=== PATIENT | female | born 1955 | race Caucasian/White ===

== ENCOUNTER 2017-09-29 09:29 | Day surgery (SDC) | payer MEDICARE, MEDICAID ==
--- NOTE | 2017-09-29 06:56 | History and Physical Report ---
DATE: 09/28/2017. CHIEF COMPLAINT AND HISTORY OF CHIEF COMPLAINT: This patient presents with a history of an intractable lumbar radiculitis. Due to the failure of all therapy , the patient presents today for a trial of intraspinal opioids using an implanted spinal catheter technique and hydromorphone. PAST MEDICAL HISTORY: Gastrointestinal disease, Crohn's disease, reflux esophagitis. PAST SURGICAL HISTORY: Hysterectomy. SOCIAL HISTORY: Caffeine, smoking. FAMILY HISTORY: Coronary artery disease, hypertension. MEDICATIONS ON ADMISSION: To be provided. ALLERGIES: None. REVIEW OF SYSTEMS: The patient seems appropriate and in no acute distress. The remainder of the systems review shows depression and difficulty sleeping. PHYSICAL EXAMINATION: General: Height and weight are not available. Vital Signs: Not available. HEENT: Within normal limits. Lungs: Clear. Heart: Regular rate and rhythm. Abdomen: Nontender. Musculoskeletal: Examination of the musculoskeletal system shows diffuse tenderness throughout the lumbar spine. The incisional site for a spinal cord implant which was placed 02/07/2015 is identified along with the generator pouch. Pain appears to be extending into the lower extremities, somewhat more right than left. Sensory field evaluation shows deficits across what could be an L4 and L5 pattern to the front and back surface of the legs. Motor functionality shows bilateral, somewhat more right greater than left, weakness across an L4-L5 pattern. Ambulation: No assistive device utilized. Neurologic: Cranial nerves are intact. IMPRESSION: LUMBAR RADICULITIS, ICD-10 CODE M54.16 AND M54.17. PLAN: The patient is here for an implanted spinal catheter infusion trial with hydromorphone to determine if the implantation of a permanent system can be of any value in pain control. The potential risks, side effects, and complications have all been carefully reviewed and discussed including spinal cord injury, nerve root injury, paralysis, and spinal headache. The patient understands and has agreed to proceed. The patient was instructed not only through the clinic and myself but was also given information provided by the technical data analyst explaining the risks, side effects, and complications. A direct interview with the [employer] sales representative marine supplies was conducted also to make sure the patient understood completely the risks, the procedure, and its content. All of the patient's questions have been answered. We will consider a possible overnight stay with discharge on an outpatient basis to be evaluated. The patient understands the incision and implantation of a spinal catheter and the dural puncture, the potential risks of spinal headache, the epidural blood patch , in combination with the implanted catheter ideally to reduce the risk of complications. JOB NUMBER: [id number] cc: Jessie Maldonado
[~2017-09-29 09:29] MED LIST: ACETAMINOPHEN 1,000 MG/100 ML BTL IV ONE; CEFAZOLIN 2 Gram 2 GM/50 ML BAG IVPB ONE; FAMOTIDINE 20MG TABLET PO ONE; MECLIZINE 25 MG TABLET PO ONE; METOCLOPRAMIDE 10 MG TABLET PO ONE
[2017-09-29] MEDS ORDERED: CEFAZOLIN 1G VIAL IM ONE (09:30)
[2017-09-29] MEDS ORDERED: BUPIVACAINE 0.5% W/EPI MPF 30 ML VIAL IVP ONE (09:30)
[2017-09-29] MEDS ORDERED: PROPOFOL 10 MG/ML VIAL IV ONE (09:30)
[2017-09-29] MEDS ORDERED: MIDAZOLAM HCL 2MG/2ML VIAL IV ONE (09:30)
[2017-09-29] MEDS ORDERED: LIDOCAINE 1% W/EPI 1:200,000 MPF 30ML SQ ONE (09:30)
[2017-09-29] MEDS ORDERED: FENTANYL PF 100MCG/2ML VIAL IV ONE (09:30)
[2017-09-29] MEDS ORDERED: HYDROMORPHONE HCL 2 MG/ML VIAL IV ONE (09:30)
[2017-09-29] MEDS ORDERED: LIDOCAINE 2% MDV (20MG/ML) 20ML VIAL IV ONE (09:30)
[2017-09-29] MEDS ORDERED: HYDROMORPHONE PF 2MG/ML AMP 0.008 MG in 0.9 % SODIUM CHLORIDE 10ML VIA 0.996 ML IV ONE ×4 (10:00)
[2017-09-29] MEDS ORDERED: HYDROMORPHONE PF 2MG/ML AMP 4 MG in 0.9 % SODIUM CHLORIDE 500ML 498 ML IV ONE (10:00)
[2017-09-29] MEDS ORDERED: METOCLOPRAMIDE HCL 10 MG/2 ML VIAL IVP PRN (13:09)
[2017-09-29] MEDS ORDERED: HYDROMORPHONE HCL 2 MG/ML VIAL IM PRN (13:09)
[2017-09-29] MEDS ORDERED: DIPHENHYDRAMINE HCL IV 50 MG/ML VIAL IVP PRN ×2 (13:09)
[2017-09-29] MEDS ORDERED: SENNOSIDES/DOCUSATE SODIUM UD CAPSULE PO PRN ×2 (13:09)
[2017-09-29] MEDS ORDERED: METOCLOPRAMIDE 10 MG TABLET PO PRN (13:09)
[2017-09-29] MEDS ORDERED: AL HYDROX/MAG HYDROX 30ML UD PO PRN (13:09)
[2017-09-29] MEDS ORDERED: OXYCODONE/APAP 10MG-325MG TABLET PO PRN ×2 (13:09)
[2017-09-29] MEDS ORDERED: DIPHENHYDRAMINE HCL 25 MG CAPSULE PO PRN ×2 (13:09)
[2017-09-29] MEDS ORDERED: HYDROCODONE/APAP 7.5/325MG TABLET PO PRN ×2 (13:09)
[2017-09-29] MEDS ORDERED: HYDROMORPHONE HCL 1 MG/ML SYRINGE IM PRN (13:09)
[2017-09-29] MEDS ORDERED: NALOXONE 0.4 MG/1 ML VIAL IVP PRN (13:09)
[2017-09-29] MEDS ORDERED: TEMAZEPAM 15 MG CAPSULE PO PRN ×2 (13:09)
[2017-09-29] MEDS ORDERED: ACETAMINOPHEN 325 MG TAB PO PRN ×2 (13:09)
[2017-09-29] MEDS: RINGERS SOLUTION,LACTATED 1,000 ML IV SCH ×2 (13:57→15:27)
[2017-09-29] MEDS ORDERED: LORAZEPAM 0.5 MG TABLET PO SCH (16:00)
--- NOTE | 2017-09-29 16:18 | Operative Note - Ferro ---
DATE OF SURGERY: 09/29/17 PREOPERATIVE DIAGNOSIS: INTRACTABLE LUMBAR RADICULITIS, ICD-10 CODE = M54.16 AND M54.17. OPERATION: 1. FLUOROSCOPICALLY-GUIDED SPINAL ACCESS AT L3/4, PLACEMENT OF THIN-WALLED SPINAL CATHETER ADVANCED TO T12. 2. DIAGNOSTIC MYELOGRAPHY WITH RADIOLOGIC SUPERVISION AND INTERPRETATION. 3. BOLUS HYDROMORPHONE SPINAL SPACE AT 0.002 MG. 4. INCISION, SUBCUTANEOUS DISSECTION, AND ANCHORING OF SPINAL CATHETER TO SUPRASPINOUS FASCIA WITH ANCHORING DEVICE AND NONABSORBABLE SUTURE. 5. INCISION, SUBCUTANEOUS DISSECTION, AND CREATION OF SUBCUTANEOUS POUCH, RIGHT POSTERIOR GLUTEAL MARGIN. 6. TUNNELING BETWEEN MIDLINE SPINAL CATHETER POUCH AND RIGHT POSTERIOR POUCH TUNNELING SPINAL CATHETER INTO POUCH, INTERFACE SPINAL CATHETER WITH SECOND CATHETER COMPONENT BY WAY OF CONNECTOR TUNNELING SECOND CATHETER COMPONENT 6 CM ABOVE POUCH EXITING SKIN. 7. INTERFACE EXTERNAL CATHETER WITH EXTERNAL PUMP SET TO DELIVER HYDROMORPHONE AT 0.04 MG A DAY. 8. CLOSURE OF MIDLINE INCISION VICRYL FOR FASCIA, SUBCUTICULAR VICRYL FOR SKIN. DERMABOND CLOSURE. CLOSURE OF RIGHT POSTERIOR GLUTEAL MARGIN POUCH NYLON SUTURE. 9. EPIDURAL BLOOD PATCH 20 ML AUTOLOGOUS BLOOD STERILE TECHNIQUE L5/S1 WITHOUT INCIDENT. SURGEON: MATT MYRICK D.O. ANESTHESIA: LOCAL SEDATION. ANESTHESIA PROVIDER: KIERSTEN SEARS CRNA INDICATION: This patient presents with a history of intractable lumbar radiculitis. Due to the failure of therapy, she is here for a spinal infusion trial with Hydromorphone using an implanted catheter technique to determine if a spinal infusion device would be of any value in pain control. PROCEDURE: Intravenous line, vital sign monitoring, IV sedation, prepped and draped in sterile technique, patient position prone. Under imaging, the spinal space at L3/4 was identified and marked. Skin infiltrated, using a 20-gauge spinal needle beveled with a long axis and on AP and then lateral imaging, the needle was attempted at 3/4. This was unsuccessful because of significant spurs. At L4/5, a 20-gauge spinal was inserted. With CSF flow, a thin-walled spinal catheter was advanced without incident. There was a mild fasciculation across the back but no pain on the part of the patient. The catheter was slowly advanced without difficulty midbody T12. CSF had been noted through the needle initially. The skin above and below the needle infiltrated, incision made, and subcutaneous dissection was conducted to the supraspinous fascia. The needle was removed and the catheter was anchored to the supraspinous fascia with an anchor and nonabsorbable suture. Once the stylette was removed from the catheter , CSF flow was identified easily flowing through the catheter itself. CSF flow had been confirmed through the catheter once the stylette had been removed. Diagnostic myelography was then performed. Contrast flow through the catheter approximately 1 mL was smooth and easy. There was no pain or response on the part of the patient. Under appropriate radiologic supervision and interpretation , appropriate flow characteristics for the myelogram noted with lateralized flow characteristics away from the catheter tip at the lower margin at T12. With appropriate flow characteristics identified and no abnormal event on the part of the patient, a bolus of Hydromorphone at 0.004 mg was given into the spinal space. The catheter had been anchored to the supraspinous fascia with nonabsorbable suture once the incision was made. A [id number] suture over the catheter penetration point was made to reinforce the area to prevent any ratcheting of the catheter out of the space. Antibiotic irrigation and Bovie for hemostasis. The patient ultimately picked the right posterior gluteal margin for the pump reservoir should the trial succeed. A small incision below the belt line was made after local was infiltrated. Subcutaneous dissection was conducted to form a small pouch at the right posterior gluteal margin. A tunneling tool was then used to carry the spinal catheter into the posterior pouch exiting the pouch. This indwelling spinal catheter was then interfaced with a second catheter component by way of a connector. The second catheter component was tunneled superior from this pouch exiting the skin. The externalized catheter was then interfaced with an external pump set to deliver Hydromorphone at 0.04 mg a day. The midline incision was closed Vicryl for fascia, running subcuticular Vicryl for skin. The posterior gluteal pouch was closed with nylon suture. An epidural blood patch was then performed. 20 mL of autologous blood was drawn sterile technique from the left antecubital maintaining sterility and placed onto the field. An 18-gauge Tuohy needle with [id number] was used to gain in the epidural space at L5/S1 without difficulty and then 20 mL of autologous blood was injected as an epidural blood patch at this level without difficulty and no response on the part of the patient. Needle removed. The area was cleaned. The dressing was reinforced and placed to secure the catheter and all connections under sterile dressing. She was then transported to the Recovery Room flat, pillow under head and knees, stable showing no side-effects from the procedure or the sedation. There was no lower extremity symptoms or abnormal findings noted. She was conversational and indicating no appreciable amount of pain. She was monitored until stable and then transported to the Floor, flat four hours, slowly elevated for one. Her requested was to be discharged home. We will evaluate discharge ability. DISCHARGE INSTRUCTIONS: 1. Sites will remain clean and dry. No showering or bathing in any way that would disrupt dressings. If it happens, contact the clinic. 2. Standard medication resumed including the antibiotic, Levaquin, 500 mg once a day for 14 days. 3. Spinal opioid side-effects; respiratory depression, nausea, vomiting, constipation, urinary retention, lightheadedness or rash have all been discussed and reviewed. Should this happened, she should contact the clinic, go to a local Emergency Room. Levaquin, the antibiotic, has been called to the pharmacy. If she has any problems with the antibiotic, she should contact the clinic for substitution. She should not be without the antibiotic. All other instructions provided, numbers to given, problems. The office will contact the patient in 24-48 hours to set up her first increase by the end of the week. All other instructions provided. cc: Dr. Malik JOB NUMBER: [id number] MTDD
[2017-09-29] MEDS ORDERED: GABAPENTIN 300 MG CAPSULE PO SCH (17:30)
[2017-09-29] MEDS ORDERED: CEFAZOLIN 2 Gram 2 GM/50 ML BAG IVPB SCH (19:00)
[2017-09-29] MEDS ORDERED: BUSPIRONE 5 MG TABLET PO SCH (22:00)
[2017-09-29] MEDS ORDERED: TRAZODONE 50 MG TABLET PO SCH (22:00)
[2017-09-29] MEDS ORDERED: ATORVASTATIN 20 MG TABLET PO SCH (22:00)
[2017-09-30] MEDS ORDERED: PANTOPRAZOLE SODIUM 40 MG TABLET PO SCH (07:00)
[2017-09-30] MEDS ORDERED: PAROXETINE HCL 10 MG TABLET PO SCH (10:00)
--- NOTE | 2017-09-30 10:09 | RADIOLOGY REPORT ---
EXAM: LUMBAR SPINE, SINGLE VIEW HISTORY: POST PAIN PUMP TRIAL. TECHNIQUE: A single AP view of the lumbar spine was obtained. Comparison: AP spine 02/06/15. FINDINGS: A battery pack is again seen overlying the left lower quadrant. Associated catheters appear to extend up at least to the level of the upper body of T10, which is the superior extent of the image. There is now a tiny metallic dot like density at the level of the thoracolumbar interspace which was not seen previously and may represent the cranial extent of an additional fine catheter and clinical correlation is suggested with the procedure. No additional battery pack identified. Degenerative arthritis in both hips, right greater than left. Linear wire or needle like density approximately 2.1 cm in length projecting over the soft tissues just lateral to the right iliac wing may be external to the patient, but clinical correlation is suggested. IMPRESSION: 1. NEW TINY METALLIC DOT LIKE DENSITY AT THE LEVEL OF THE THORACOLUMBAR INTERSPACE MAY REPRESENT THE CRANIAL EXTENT OF A SMALL CALIBER SPINAL CATHETER AND CLINICAL CORRELATION IS SUGGESTED. 2. BATTERY PACK WITH CATHETER/ELECTRODES EXTENDING UP TO AT LEAST THE T10 LEVEL DESCRIBED ABOVE. 3. WIRE OR NEEDLE LIKE DENSITY OVERLYING THE SOFT TISSUES OF THE RIGHT SIDE OF THE PELVIS JUST LATERAL TO THE ILIAC WING DESCRIBED ABOVE. 4. DEGENERATIVE ARTHRITIS IN THE HIPS, RIGHT GREATER THAN LEFT. JOB NUMBER: [id number] MTDD
== END 2017-09-29 18:00 | disposition home or self-care (01) ==
LOC: SUR 09:29 → MEDSURG 13:01 → SUR 18:00
PROVIDERS: ATTEND Pain Medicine Interventional Pain Medicine
DX: M54.16 Radiculopathy, lumbar region (principal); M54.17 Radiculopathy, lumbosacral region; F41.8 Other specified anxiety disorders; E78.00 Pure hypercholesterolemia, unspecified; K50.90 Crohn's disease, unspecified, without complications
CPT/HCPCS: 72020; J0690; J1170; J7040; J7120

== ENCOUNTER 2017-10-13 10:24 | Day surgery (SDC) | payer MEDICARE, MEDICAID ==
--- NOTE | 2017-10-13 07:21 | History and Physical - Ferro ---
CHIEF COMPLAINT/HISTORY OF CHIEF COMPLAINT: This patient with an ongoing implanted spinal catheter infusion trial using Hydromorphone has achieved 75-85 % pain control. Due to the failure of all of the other therapies, she is here for permanent implant of the device. PAST MEDICAL HISTORY: Gastrointestinal disease, Crohn's disease, and reflux esophagitis. PAST SURGICAL HISTORY: Hysterectomy. MEDICATIONS ON ADMISSION: List to be provided. ALLERGIES: None. FAMILY/PSYCHOSOCIAL HISTORY: Social history - Positive for caffeine and smoking. Family history - Coronary artery disease and hypertension. SYSTEMS REVIEW: The patient is appropriate in no acute distress. The remainder of the systems review is positive for depression and difficulty sleeping. PHYSICAL EXAMINATION: Height is not known. Vital signs - Blood pressure 135/66 , pulse 71, respirations 16, O2 saturation 96% on room air. HEENT: Within normal limits. LUNGS: Clear. HEART: Rapid and regular. ABDOMEN: Nontender. MUSCULOSKELETAL: Examination of the musculoskeletal system shows the primary pain pattern to be bilateral lower extremity. The dressings holding the implanted catheter in place and intact are still in place. Externalized pump functioning and in place. Primary pain pattern bilateral lower extremity radicular components. Motor and sensory field evaluation shows mild deficits across the sensory nair of L4 and L5 bilateral. Motor functionality shows somewhat reduced strength right greater than left across an L4- and L5 pattern. Reflexes look difficult to elicit. Ambulation - No assistive device utilized. NEUROLOGIC: Cranial nerves are intact. IMPRESSION: 1. LUMBAR RADICULOPATHY, ICD-10 CODE M54.16 AND M54.17. 2. IMPLANTED SPINAL CATHETER INFUSION TRIAL USING HYDROMORPHONE. PLAN: With the success of the trial the patient is here for implantation of a permanent system. The potential risks, side effects, and complications all have been reviewed and discussed. We will consider this perhaps an outpatient procedure although an overnight stay will be evaluated. JOB NUMBER: [id number] [facility]
[~2017-10-13 10:24] MED LIST changes: +HYDROMORPHONE HCL 0.032 GM in 0.9 % SODIUM CHLORIDE 10ML VIA 40 ML IV ONE; +HYDROMORPHONE PF 2MG/ML AMP 0.004 MG in 0.9 % SODIUM CHLORIDE 10ML VIA 0.998 ML IV ONE
[2017-10-13] MEDS ORDERED: LIDOCAINE 1% W/EPI 1:200,000 MPF 30ML SQ ONE (10:25)
[2017-10-13] MEDS ORDERED: BUPIVACAINE 0.5% W/EPI MPF 30 ML VIAL IVP ONE (10:25)
[2017-10-13] MEDS ORDERED: MIDAZOLAM HCL 2MG/2ML VIAL IV ONE (10:25)
[2017-10-13] MEDS ORDERED: PROPOFOL 10 MG/ML VIAL IV ONE (10:25)
[2017-10-13] MEDS ORDERED: HYDROMORPHONE HCL 2 MG/ML VIAL IV ONE (10:25)
[2017-10-13] MEDS ORDERED: CEFAZOLIN 1G VIAL IM ONE (10:25)
[2017-10-13] MEDS ORDERED: *PACU ONLY* KETAMINE HCL 10 MG/ML (20ML) VIAL IV ONE (10:25)
--- NOTE | 2017-10-13 17:03 | Operative Note - Ferro ---
DATE OF SURGERY: 10/13/17 PREOPERATIVE DIAGNOSES: 1. INTRACTABLE LUMBAR RADICULOPATHY, ICD-10 CODE = M54.16 AND M54.17. 2. IMPLANTED SPINAL CATHETER INFUSION TRIAL HYDROMORPHONE. OPERATION: 1. INCISION, SUBCUTANEOUS DISSECTION, AND REMOVAL OF EXTERNALIZED CATHETER. 2. INCISION, SUBCUTANEOUS DISSECTION, AND FORMATION OF SUBCUTANEOUS POUCH FOR PROGRAMMABLE PUMP RIGHT POSTERIOR GLUTEAL MARGIN IDENTIFIED A MEDTRONIC 40 ML PROGRAMMABLE. 3. RESECTION AND INTERFACE INDWELLING SPINAL CATHETER WITH SECOND CATHETER COMPONENT BY WAY OF CONNECTOR. 4. INTERFACE REVISED CATHETER TO PUMP PLACED ONTO THE FIELD, PRE-FILLED HYDROMORPHONE 1 MG PER ML. 5. PLACEMENT OF PUMP INTO FORMED POUCH SECURING TO FASCIA WITH NONABSORBABLE SUTURE, THREE POINTS PUMP EYELETS. 6. PLACEMENT OF CURVED 24-GAUGE BANGURA NEEDLE WITH ACCESS PORT PROGRAMMABLE PUMP , ASPIRATION CLEARING CATHETER OF OPIOID AND CSF MIXTURE. 7. DIAGNOSTIC MYELOGRAPHY WITH RADIOLOGIC SUPERVISION AND INTERPRETATION. 8. PROGRAMMING OF PUMP TO DELIVER HYDROMORPHONE CONTINUOUS INFUSION AT 0.10 MG A DAY. 9. CLOSURE OF INCISIONS, VICRYL FOR FASCIA, RUNNING SUBCUTICULAR VICRYL FOR SKIN. DERMABOND CLOSURE. SURGEON: MATT MYRICK D.O. ANESTHESIA: LOCAL SEDATION. ANESTHESIA PROVIDER: LILLIANA FRAGOSO CRNA. INDICATION: This patient presents with a history of intractable lumbar radiculitis with an ongoing implanted spinal catheter infusion trial Hydromorphone. With success of the trial and failure of other therapies, she is here for full implantation of a permanent system. PROCEDURE: Intravenous line, vital sign monitoring, IV sedation, prepped and draped with sterile technique. Patient position prone. Sterile prep. Sterile technique. The dressings holding the implanted catheter trial were removed. At the right posterior gluteal margin pump pouch site, skin infiltrated, incision made, and subcutaneous dissection was conducted to the interface between the external catheter and the indwelling catheter. The catheter was clamped and the externalized catheter was cut and resected and then removed moving and pulling away from the incision out the skin. Subcutaneous dissection was conducted at the right posterior gluteal margin to form a pouch of suitable size and depth for the pump identified as a Medtronic 40 mL Programmable. The indwelling catheter, which had been resected was then revised, resected, and interfaced with a second catheter component by way of a connector. This revised catheter component was then interfaced to a pump 40 mL Programmable Deskidea, placed onto the field filled with Hydromorphone at 1 mg per mL concentration. With the interface connection made, the pump was placed into the pouch and secured to the fascia with nonabsorbable suture through the pump eyelets, three points. Antibiotic irrigation and Bovie for hemostasis. A curved 24-gauge [place] needle was inserted into the access port and 1 mL of catheter content was aspirated clearing the catheter of opioid and CSF mixture. Diagnostic myelography was then performed through the access port. Contrast flow characteristics with the internal pump were appropriate. There were no leaks or kinks. Catheter pump connection was identified. No kinks or leaks. Tip of the catheter at T1/L1 was identified with appropriate myelogram flow characteristics identified confirming functionality of the system. At that point, with the pump in the pouch, the incision was closed Vicryl for fascia, running subcuticular Vicryl for skin, and a Dermabond closure. The pump was programmed to deliver continuous infusion of Hydromorphone at 0.1 mg a day. She was transported to the Recovery Room stable showing no side-effects from the procedure or the sedation. She showed no side-effects related to the procedure. DISCHARGE INSTRUCTIONS: 1. Sites remain clean and dry. No showering or bathing in any way that would disrupt dressings. If it happens, contact the clinic. 2. Standard medications resumed including Levaquin, the antibiotic, 500 mg once a day for another 7-10 days. 3. Spinal opioid side-effects; respiratory depression, nausea, vomiting, constipation, urinary retention, lightheadedness or rash have all been discussed and reviewed. All other instructions provided, numbers to contact, problems given. She will be contacted in the next 42 hours by the office setting an appointment in 5-7 days to evaluate the sites. Until then, her activities should stay low limiting bend, lift, push, pull. Complete the antibiotic as directed. All other instructions provided, numbers to contact, problems given. All the potential side-effects have been reviewed. cc: Dr. Malik JOB NUMBER: [id number] MTDD
== END 2017-10-13 14:48 | disposition home or self-care (01) ==
LOC: SUR 10:24
PROVIDERS: ATTEND Pain Medicine Interventional Pain Medicine
DX: M54.16 Radiculopathy, lumbar region (principal); M54.17 Radiculopathy, lumbosacral region; E78.00 Pure hypercholesterolemia, unspecified; K50.90 Crohn's disease, unspecified, without complications; F41.8 Other specified anxiety disorders
CPT/HCPCS: 62362; 00630; 00300; 62367; Q9967; J1170 ×2; J0690; C1755

== ENCOUNTER 2017-10-22 09:15 | Emergency (ER) | payer MEDICARE, MEDICAID ==
--- NOTE | 2017-10-22 09:30 | Emergency Department Record ---
History of Present Illness - General Chief complaint: Lower Extremity Pain Stated complaint: LEFT LEG PAIN Time Seen by Provider: 10/22/17 09:16 Source: Patient Mode of Arrival: Ambulatory Limitations: No limitations - History of Present Illness Initial comments: 62 yo female presents with one week of left distal leg pain and swelling. No injury. No fever. No abnormal redness, wamth or coolness. No cough, chest pain or shortness of breath. She did have a spinal catheter pump placement on . She states this initially went well without any complications. She has suffered form chronic sciatica mostly on the right but occasionally on the left as well. No weakness or numbness. 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 MD Complaint: Extremity pain, Extremity swelling -: Week(s) (1) Location: Left, Ankle, Lower Leg History of Same: Yes -: Yes Arthralgia Radiation: Distal Quality: Aching Consistency: Constant Improves with: Nothing Worsens with: Weight bearing Associated Symptoms: Denies other symptoms - Related Data Home Medications Medication Instructions Recorded Confirmed Last Taken Atorvastatin Calcium [Lipitor] 20 mg PO DAILY 10/22/17 10/22/17 10/22/17 Buspirone HCl [Buspar] 7.5 mg PO BID 10/22/17 10/22/17 10/22/17 Dicyclomine HCl [Dicyclomine HCl] 20 mg PO ASDIR 10/22/17 10/22/17 Unknown Gabapentin [Neurontin] 600 mg PO TID 10/22/17 10/22/17 10/22/17 Hydrocodone/Acetaminophen [[place] 1 each PO Q6H 10/22/17 10/22/17 Unknown 7.5-325 Tablet] Mesalamine [Asacol Hd] 800 mg PO DAILY 10/22/17 10/22/17 Unknown Ondansetron [Zofran Odt] 4 mg PO ASDIR 10/22/17 10/22/17 Unknown Paroxetine HCl [Paxil] 40 mg PO DAILY 10/22/17 10/22/17 10/22/17 Ropinirole HCl [Requip] 1 mg PO QHS 10/22/17 10/22/17 Unknown Trazodone HCl 100 mg PO QHS 10/22/17 10/22/17 Unknown Previous Rx's Medication Instructions Recorded Clindamycin HCl 300 mg PO QID #28 capsule 10/22/17 Hydrocodone/Acetaminophen [[place] 1 each PO Q6H #12 tablet 10/22/17 7.5-325 Tablet] Allergies Allergy/AdvReac Type Severity Reaction Status Date / Time morphine Allergy SWELLING Verified 10/22/17 09:29 OF THE TONGUE Review of Systems Constitutional: Denies: Chills, Fever Eyes: Denies: Vision change ENT: Denies: Congestion, Throat pain Respiratory: Denies: Cough, Dyspnea, Hemoptysis, Stridor, Wheezes Cardiovascular: Denies: Chest pain, Palpitations, Syncope Endocrine: Denies: Fatigue Gastrointestinal: Denies: Abdominal pain, Diarrhea, Nausea, Vomiting Genitourinary: Denies: Dysuria Musculoskeletal: Reports: As per HPI, Arthralgia, Back pain, Joint swelling Skin: Denies: Bruising, Change in color, Rash Neurological: Denies: Headache, Numbness, Vertigo, Weakness Psychiatric: Denies: Anxiety Hematological/Lymphatic: Denies: Blood Clots, Easy bleeding, Easy bruising, Swollen glands Past Medical History - SOCIAL HISTORY Smoking Status: Current every day smoker - RESPIRATORY Hx Respiratory Disorders: Yes Hx Bronchitis: Yes - CARDIOVASCULAR Hx Cardio Disorders: Yes Comment:: due to back pain - NEURO Hx Neuro Disorders: Yes Hx Neuropathy: Yes - GI Hx GI Disorders: Yes Hx Crohn's Disease: Yes (dx'd 1991 controlled) Hx Reflux: Yes (on meds good control) - Hx Genitourinary Disorders: No Comment:: hyst - ENDOCRINE Hx Endocrine Disorders: No - MUSCULOSKELETAL Hx Musculoskeletal Disorders: Yes Hx Arthritis: Yes (in back and right knee) - PSYCH Hx Psych Problems: Yes Hx Anxiety: Yes Hx Depression: Yes - HEMATOLOGY/ONCOLOGY Hx Hematology/Oncology Disorders: No Family Medical History Hx Cancer: Father, Mother Hx Depression: Children Hx Resp Disorders: Mother Physical Exam - General General Appearance: Alert, Oriented x3, Cooperative, No acute distress Limitations: No limitations - Head Head exam: Atraumatic, Normal inspection - Eye Eye exam: Normal appearance. negative: Conjunctival injection, Scleral icterus - ENT ENT exam: Normal exam Ear exam: Normal external inspection Nasal Exam: Normal inspection Mouth exam: Normal external inspection - Neck Neck exam: Normal inspection - Respiratory Respiratory exam: Normal lung sounds bilaterally. negative: Respiratory distress - Cardiovascular Cardiovascular Exam: Regular rate, Normal rhythm, Normal heart sounds - GI/Abdominal GI/Abdominal exam: Soft. negative: Tenderness - Rectal Rectal exam: Deferred - exam: Deferred - Extremities Extremities exam: Calf tenderness (mild distal), Normal capillary refill, Pedal edema (mild distal calf, ankle to the foot, very minimal compared to asymptomatic right side), Tenderness Image of Full Body: 1 - surgical site is clean and dry, no abnormal warmth or redness, no drainage or pus. Mild swelling compatable with hematoma/seroma possibly. - Back Back exam: Reports: Normal inspection - Neurological Neurological exam: Alert, Oriented X3 - Psychiatric Psychiatric exam: Normal affect, Normal mood - Skin Skin exam: Dry, Intact, Normal color, Warm, Other (No abnormal warmth, redness or coolness). negative: Erythema Course - Reevaluation(s) Reevaluation #1: 10/22/17 09:53 The CBC was reviewed. No acute changes. 10/22/17 10:07 No acute changes on the BMP or Uric acid The OP note was reviewed on EMR 10/22/17 11:36 The venous doppler was negative for DVT The surgical site was examined. No abnormal warmth or redness. She does have local swelling that feels consistent with small hematoma. She will be continued on her medications until follow up with her surgeon. Given she has pain around her joint and tendons the Levaquin will be changed as this can cause a tendonitis. 10/22/17 11:44 I discussed the patient's presentation with Dr Tovar. At this time the surgical site is clean without overt signs of infection, no fever, normal WBC count. This is most likely seroma vs hematoma. 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 Medical Decision Making - Lab Data Result diagrams: 10/22/17 09:40 10/22/17 09:40 Disposition Disposition: Discharge Clinical Impression: Leg pain, left Ankle pain, left Qualifiers: Chronicity: acute Qualified Code(s): M25.572 - Pain in left ankle and joints of left foot Disposition: Home, Self-Care Condition: (1) Good Instructions: Arthritis (ED) Additional Instructions: Rest and avoid lift, over exertion or standing Follow up on Wednesday as scheduled with Dr Tovar Return over the weekend if fever or pus or any new concerns Prescriptions: Clindamycin HCl 300 mg PO QID #28 capsule Hydrocodone/Acetaminophen [[place] 7.5-325 Tablet] 1 each PO Q6H #12 tablet Forms: Patient Portal Access Time of Disposition: 11:42 Quality - Quality Measures Quality Measures: N/A - Blood Pressure Screening Does Patient Have Any of the Following: No Blood Pressure Classification: Pre-Hypertensive BP Reading Systolic Measurement: 124 Diastolic Measurement: 58 Screening for High Blood Pressure: < Pre-Hypertensive BP, F/U Documented > [ [id number]] Pre-Hypertensive Follow-up Interventions: Referral to alternative/primary care provider.
[2017-10-22] MEDS ORDERED: HYDROCODONE/APAP 7.5/325MG TABLET PO ONE (09:40)
[2017-10-22 09:46] LABS: BASO % 0.5 % (0-6); EOS % 1.5 % (0-6); GRAN % 61.1 % (47-80); HEMATOCRIT 40.2 % (35.0-47.0); HEMOGLOBIN 13.4 gm/dl (11.6-16.0); LYMPH % 27.9 % (16-45); MEAN CELL VOLUME 96.4 fl (81-97); MEAN CORPUSCULAR HEMOGLOBIN 32.1 pg (27-33); MEAN CORPUSCULAR HGB CONC 33.3 g/dl (32-36); MEAN PLATELET VOLUME 9.5 fl (7.4-10.4); PLATELET COUNT 242 K/uL (130-400); RED BLOOD COUNT 4.17 M/uL (3.80-5.40); RED CELL DISTRIBUTION WIDTH 12.5 % (11.5-14.5); WHITE BLOOD COUNT W/O DIFF 8.8 K/uL (4.2-12.2)
[2017-10-22 09:59] LABS: BLOOD UREA NITROGEN 12 mg/dL (8-23); CREATININE 0.8 mg/dL (0.5-0.9); EST GLOMERULAR FILTRATION RATE > 60 mL/min
[2017-10-22 10:02] LABS: GLUCOSE,RANDOM 102 mg/dL (74-109)
--- NOTE | 2017-10-23 20:54 | RADIOLOGY REPORT ---
EXAM: ANKLE LEFT 3 VIEWS HISTORY: LEFT ANKLE PAIN FOR A WEEK. NO KNOWN INJURY. TECHNIQUE: Three views left ankle. COMPARISON: None. FINDINGS: Left ankle appears intact with no definite bony or adjacent soft tissue abnormality identified. Small calcaneal spurs are noted both posteriorly and along the plantar surface. IMPRESSION: 1. LEFT ANKLE APPEARS NEGATIVE. 2. SMALL CALCANEAL SPURS. JOB NUMBER: [id number] [facility] [facility]
--- NOTE | 2017-10-23 21:26 | US VENOUS DOPPLER REPORT ---
EXAM: ULTRASOUND VENOUS DOPPLER LOWER EXT LT HISTORY: PAIN AND SWELLING LEFT LOWER EXTREMITY, POSSIBLE DVT. TECHNIQUE: Venous Doppler ultrasound of the left lower extremity was performed with color-flow and spectral analysis. Compression and flow augmentation maneuvers were performed in the thigh and popliteal region as well. COMPARISON: No prior venous Doppler ultrasound of the left lower extremity. FINDINGS: Flow is seen throughout the visualized venous anatomy of the left lower extremity with no DVT identified. Compression and flow augmentation was evident throughout the venous anatomy of the thigh and popliteal region as well. IMPRESSION: NEGATIVE VENOUS DOPPLER ULTRASOUND OF THE LEFT LOWER EXTREMITY WITH NO DVT IDENTIFIED. [facility]BER: [id number] [facility]
== END 2017-10-22 11:52 | disposition home or self-care (01) ==
LOC: ER 09:15
DX: M79.662 Pain in left lower leg (principal); M25.572 Pain in left ankle and joints of left foot; M54.16 Radiculopathy, lumbar region; M54.17 Radiculopathy, lumbosacral region; F17.210 Nicotine dependence, cigarettes, uncomplicated; Z98.890 Other specified postprocedural states
CPT/HCPCS: 80048; 84550; 85025; 99283; 99284

== ENCOUNTER 2019-07-11 10:43 | Day surgery (SDC) | payer MEDICAID, MEDICARE ==
--- NOTE | 2019-07-11 07:45 | History and Physical - [facility] ---
CHIEF COMPLAINT/HISTORY OF CHIEF COMPLAINT: This patient presents with a history of intractable lumbar radiculopathy. Due to the failure of therapy a spinal cord stimulator implant was performed on 02/07/15. Although the system appeared to be working well, recently with the disruption of stimulation patterns and a standard x-ray we evaluated the system and found that she had a lead fracture. She had completely lost stimulation into the area of her back and leg. With the identification of a lead fracture and the lack of ability to reprogram the system, she was given the option to remove or remove and replace and she opted to remove and replace. PAST MEDICAL HISTORY: Gastrointestinal disease, Crohn's, and reflux esophagitis. PAST SURGICAL HISTORY: Hysterectomy, stimulator implant, and pump implant. MEDICATIONS ON ADMISSION: List to be provided. ALLERGIES: None. FAMILY/PSYCHOSOCIAL HISTORY: Social history - Caffeine and smoking. Family history - Coronary artery disease and hypertension. SYSTEMS REVIEW: The patient is appropriate in no acute distress. The remainder of the systems review is positive for depression and anxiety disorder. PHYSICAL EXAMINATION: No height and weight. Vital signs are not available. HEENT: Within normal limits. LUNGS: Clear. HEART: Rapid and regular. ABDOMEN: Nontender. MUSCULOSKELETAL: Examination of the musculoskeletal system shows the incision for the leads approximating T12-L1. Generator pouch left posterior gluteal margin identified. All incisions are intact. Primary pain pattern low back with bilateral lower extremity. There are mild motor and mild sensory abnormalities into both legs. Ambulation is intact. No assistive device utilized. NEUROLOGIC: Cranial nerves are intact. IMPRESSION: 1. LUMBAR RADICULOPATHY, ICD-10 CODE M54.16 AND M54.17. 2. SPINAL CORD STIMULATOR INTERNAL GENERATOR LEAD FRACTURE. PLAN: At this point we are here to remove and replace the system, the question is if it would be possible simply to remove the one fractured lead or if we will need to remove both leads, replace both leads and generator. We will evaluate intraoperative and perform the required procedure. The procedure will be considered outpatient although an overnight stay will be evaluated. JOB NUMBER: [id number] MTDD
[~2019-07-11 10:43] MED LIST changes: -ACETAMINOPHEN 1,000 MG/100 ML BTL IV ONE; +ACETAMINOPHEN 1,000 MG/100 ML BTL IVPB ONE; -HYDROMORPHONE HCL 0.032 GM in 0.9 % SODIUM CHLORIDE 10ML VIA 40 ML IV ONE; -HYDROMORPHONE PF 2MG/ML AMP 0.004 MG in 0.9 % SODIUM CHLORIDE 10ML VIA 0.998 ML IV ONE; +VANCOMYCIN 1GM/200ML PREMIX 1 GM/200 ML PIGGYBACK IVPB ONE
[2019-07-11] MEDS ORDERED: MIDAZOLAM HCL 2MG/2ML VIAL IV ONE (10:44)
[2019-07-11] MEDS ORDERED: LIDOCAINE 2% MDV (20MG/ML) 20ML VIAL IV ONE (10:44)
[2019-07-11] MEDS ORDERED: FENTANYL PF 100MCG/2ML VIAL IV ONE (10:44)
[2019-07-11] MEDS ORDERED: PROPOFOL 10 MG/ML VIAL IV ONE (10:44)
[2019-07-11] MEDS ORDERED: *PACU ONLY* KETAMINE HCL 10 MG/ML (20ML) VIAL IV ONE (10:44)
[2019-07-11] MEDS ORDERED: RINGERS SOLUTION,LACTATED 1,000 ML IV ONE ×2 (11:35→13:39)
[2019-07-11] MEDS ORDERED: BUPIVACAINE 0.5% W/EPI MPF 30 ML VIAL SQ ONE ×2 (12:54)
[2019-07-11] MEDS ORDERED: LIDOCAINE 1% W/EPI 1:100,000 MDV 20 ML VIAL SQ ONE ×2 (12:54)
[2019-07-11] MEDS ORDERED: CEFAZOLIN 1G VIAL IR ONE (12:55)
[2019-07-11] MEDS ORDERED: HYDROMORPHONE HCL 2 MG/ML VIAL IVP ONE (14:12)
[2019-07-11] MEDS ORDERED: OXYCODONE/APAP 10MG-325MG TABLET PO ONE (14:35)
--- NOTE | 2019-07-12 08:29 | Operative Note - [facility] ---
DATE OF SURGERY: 07/11/2019 PREOPERATIVE DIAGNOSIS: 1. LUMBAR RADICULOPATHY, ICD-10 CODE M54.16 AND M54.17. 2. TWO LEAD SPINAL CORD STIMULATOR INTERNAL GENERATOR, NONFUNCTIONAL. OPERATION: 1. FLUOROSCOPICALLY GUIDED INCISION, SUBCUTANEOUS DISSECTION AND TESTING OF SPINAL CORD STIMULATOR LEAD 1 AND SPINAL CORD STIMULATOR LEAD 2 NOTING COMPLETE LACK OF FUNCTION LEAD 1 AND MULTIPLE ELECTRODE FAILURE LEAD 2. 2. INCISION, SUBCUTANEOUS DISSECTION AND REMOVAL OF LEAD 1 AND LEAD 2 IMPLANTED LEFT AND RIGHT OF MIDLINE T12-L1. 3. FLUOROSCOPICALLY GUIDED EPIDURAL ACCESS T11-T12, PLACEMENT OF SPINAL CORD STIMULATOR LEAD 1 [employer] IN[employer] 16, 6-ELECTRODES POSITIONED LEFT OF T7. 4. FLUOROSCOPICALLY GUIDED EPIDURAL ACCESS T12-L1, PLACEMENT OF SPINAL CORD STIMULATOR LEAD 2 [employer] IN[employer] 16, 6-ELECTRODES POSITION RIGHT OF T7. 5. COMPLEX PROGRAMMING OF LEAD 1 OVER TWENTY MINUTES WELL COMPLEX PROGRAMMING OF LEAD 2 OVER TWENTY MINUTES. 6. INCISION REVISION OF INITIAL PLACEMENT SITE WITH ANCHORING OF LEAD 1 AND LEAD 2 TO SUPRASPINOUS FASCIA WITH A [employer] LOCKING ANCHOR, EACH LEAD ANCHORED SEPARATELY WITH NONABSORBABLE SUTURE. 7. REMOVAL OF INTERNAL PULSE GENERATOR IDENTIFIED OLD GENERATION [employer] FROM THE LEFT POSTERIOR GLUTEAL MARGIN. 8. TUNNELLING BETWEEN LEAD POUCH INTO GENERATOR POUCH, PLACEMENT OF EACH LEAD INTO GENERATOR POUCH, INTERFACE EACH LEAD WITH NEW GENERATOR IDENTIFIED A [employer] PROGRAMMABLE RECHARGEABLE WAVEWRITER. 9. PLACEMENT OF GENERATOR INTO POUCH, SECURING TO POSTERIOR FASCIA WITH NONABSORBABLE SUTURE, PLACEMENT OF LEADS INTO POUCH, CLOSURE OF BOTH INCISIONS WITH STRATAFIX SUTURE 2-0 FASCIA AND 3-0 SKIN. DERMABOND CLOSURE. 10. COMPLEX RECOVERY ROOM PROGRAMMING INTERNAL GENERATOR HOME USE TWO STIMULATORS FOR TWENTY MINUTES. SURGEON: Adriel Tovar D.O. ANESTHESIA: Local sedation. ANESTHESIA PROVIDER: JENNIFER Barbosa CRNA INDICATION: This patient presents with a history of intractable lumbar radiculopathy which has been managed over the last two to three years with a spinal cord stimulator internal generator. Over the last number of months complete disruption of stimulation was noted by the patient. X-rays showed one of the two leads had a fracture in the lead extension to the generator. She was given the option to remove or remove and replace and she opted to remove and replace. Since her generator was an old generation [employer] it was felt appropriate to improve stimulation with the new leads, and to replace the generator with the new generation WaveWriter. PROCEDURE: Intravenous line, vital sign monitoring, IV sedation, prepped and draped, sterile technique. Under imaging the generator pouch at the left posterior gluteal margin was infiltrated, incision made, subcutaneous dissection was conducted to the generator pouch and the generator was then removed. Each of the two lead extensions was then interfaced to a generator and electrical analysis of the two leads was performed. The left lead was found to be completely disruption from the fracture. The right lead was found to demonstrate multiple electrode failures. At that point it was planned to replace both leads. Further surgery was then performed. The midline incision for the two leads was infiltrated, incision made, subcutaneous dissection was conducted to the leads and their suture anchor. The suture was removed and the two leads were removed intact. Using standard epidural needles the first at T11-T12 and the second at T12-L1 with loss of resistance technique the epidural space was accessed at each of the two levels, atraumatic. No blood. No CSF. At T11-T12 spinal cord stimulator Lead 1, a [employer] Infinion 16, 6- electrodes was advanced into the epidural space, positioned under imaging left side T7. With the access same technique at T12-L1, atraumatic. No blood. No CSF. Spinal cord stimulator Lead 2 [employer] Infinion 16, 6-electrodes was positioned right of T7. With the patient awake complex programming of the two leads was performed over twenty minutes Lead 1 and then twenty minutes Lead 2 establishing stimulation to all of the appropriate areas. The patient while fully awake and alert was given the option to implant it or removed and she opted to implant the new leads. She was re-sedated. Each of the two leads was then anchored in the previous incision after slight revision performed. Each lead was anchored with a [employer] locking anchor and nonabsorbable suture. The previous generator pouch at the left posterior gluteal margin was used for the new generator. A tunnelling tool was used to carry the two leads into the generator pouch and then each lead was interfaced with a new [employer] programmable rechargeable WaveWriter generator. Antibiotic irrigation, Bovie for hemostasis at both sites. The generator was then placed into the pouch once secured to the leads and secured itself to the posterior fascia with nonabsorbable suture. The generator is now in the pouch. The leads were placed into their pouch and then both incisions were closed using Stratafix suture 2-0 fascia and 3-0 skin. A Dermabond closure was then used to approximate the edges of both wounds. The patient was transported to the Recovery Room stable. No side effects from the procedure or the sedation. When fully awake and alert in the Recovery Room complex programming of the generator over twenty minutes performed re-establishing stimulation pain control in all of the appropriate areas. The patient was instructed on the use of the system and them prepared for discharge. DISCHARGE INSTRUCTIONS: 1. The sites are to remain clean and dry although the Dermabond will allow showering she should not sit in water. 2. Standard medications resumed including the antibiotic Levaquin 500 mg once a day for fourteen days. 3. Office to contact the patient in 12-24 hours to set up a time in 7-10 days for us to evaluate the sites, until then she is to keep her sites clean and dry. The antibiotic Levaquin 500 mg has been called to her local pharmacy. She is provided a prescription for Percocet 7.5/325 for seven days to manage incisional pain. She will be seen in the office. All other instructions were provided. Numbers to contact if problems give. She was then discharged. JOB NUMBER: [id number] MTDD
--- NOTE | 2019-07-12 09:18 | RADIOLOGY REPORT ---
EXAMINATION: Thoracolumbar Spine Single View EXAM DATE: 07/11/2019 3:32 PM TECHNIQUE: Frontal view INDICATION: S/P SCS LEADS AND GENERATOR REPLACEMENT COMPARISON: Lumbar spine radiographs 09/29/2017. ENCOUNTER: Initial FINDINGS/IMPRESSION: Spinal cord stimulator electrode leads extending from T7 to T9, higher than on prior study. Left lowe r quadrant battery pack. No appreciable kinking or interruptions along the radiopaque course of the t ubing. Dictated by: Chaparrita Carlin MD on 07/12/2019 9:14 AM. .
== END 2019-07-11 15:11 | disposition home or self-care (01) ==
LOC: SUR 10:43
PROVIDERS: ATTEND Pain Medicine Interventional Pain Medicine
DX: M54.16 Radiculopathy, lumbar region (principal); M54.17 Radiculopathy, lumbosacral region; T85.193A Other mechanical complication of implanted electronic neurostimulator, generator, initial encounter; E78.00 Pure hypercholesterolemia, unspecified; G25.81 Restless legs syndrome; K22.4 Dyskinesia of esophagus; F17.210 Nicotine dependence, cigarettes, uncomplicated
CPT/HCPCS: 63650; 63685; 01936; 95972; 72020; C1883; C1820; J3010; J1170; J3370; J0690; J7120